=== PATIENT | male | born 1950 | race Caucasian/White ===

== ENCOUNTER → 2020-02-28 | Outpatient (CLI) | payer MEDICARE ==
[~2020-02-28] MED LIST: ALBUTEROL SULF8.5 GM; ATENOLOL100 MG; GLIPIZIDE ER2.5 MG PO; HYDROCHLOROTHIA25 MG PO; ISOSORBIDE MONO30 MG PO; LISINOPRIL10 MG PO; SYMBICORT 16010.2 GM
--- NOTE | 2020-02-28 12:55 | Diagnostic Imaging Report ---
Exam: KUB - 2 views Indication: Renal calculus Comparison: None Findings: No radiographically apparent urinary calculi. Nonobstructive bowel gas pattern. No free air. Status post cholecystectomy. Partially visualized on the wires. Degenerative changes of the visualized spine and mild degenerative changes of both hip joints. Impression: No radiographically apparent urinary calculi. Signed by: Omkar Hoang MD on 02/28/2020 12:52 PM
== END ==
LOC: RAD 11:28
PROVIDERS: ATTEND Internal Medicine
DX: N20.0 Calculus of kidney (principal)
CPT/HCPCS: 74018